=== PATIENT | female | born 1995 ===

== ENCOUNTER 2018-02-03 12:37 | Inpatient (IN) | payer BC ==
[2018-02-03 13:51] LABS: PLATELET COUNT 334 10^3/uL (150-400)
--- NOTE | 2018-02-03 13:57 | EDPHY ---
H & P Smoking Status: Never smoked Time Seen by Provider: 02/03/18 13:01 HPI/ROS: CHIEF COMPLAINT: Suicidal ideation HISTORY OF PRESENT ILLNESS: 22-year-old female presents to the emergency department on an M1 hold for suicidal ideation. The patient is a current student at [employer] and went to the counseling office stating that she has had suicidal ideation for last several days specially last evening. They placed her on an M1 hold and she was brought to the emergency department for evaluation. The patient has no specific plan of suicide. Patient states she was "obsessing about this last night and researching ways to on the Internet."She denies substance abuse. She denies auditory or visual hallucinations. The patient states that she saw psychiatrist a few years ago and was diagnosed with bipolar. She states that she was never started on medication. Apparently her "sessions ran out" and therefore she never had further follow-up or medications started. Currently she has no physical complaints. Denies pain in her chest or difficulty breathing. Denies abdominal pain. No URI symptoms. REVIEW OF SYSTEMS: Constitutional: No fever, no chills. Eyes: No double or blurry vision. ENT: No sore throat. Respiratory: No cough, no shortness of breath. Cardiac: No chest pain. Gastrointestinal: No abdominal pain, vomiting or diarrhea. Genitourinary: No dysuria. Musculoskeletal: No neck or back pain. Skin: No rashes. Neurological: No headache. (Verito Celayaa Josh) Past Medical/Surgical History: Depression, bipolar (Lesley Celayaestuardo Moreno) Social History: [employer] student from [place] (Verito Celayaa Josh) Physical Exam: General Appearance: Alert, no distress. Eyes: Pupils equal and round. Extraocular motions are all intact. ENT: Mouth: Mucous membranes moist. Respiratory: No wheezing, rhonchi, or rales, lungs are clear to auscultation. Cardiovascular: Regular rate and rhythm. Gastrointestinal: Abdomen is soft and nontender, no masses, no rebound or guarding, bowel sounds normal. Neurological: Alert and oriented x 3, cranial nerves II through XII grossly intact Skin: Warm and dry, no rashes. Musculoskeletal: Nontender to palpate along the cervical, thoracic or lumbar spine. Neck is supple. Extremities: Full range of motion and no peripheral edema. Psychiatric: Patient is oriented X 3, there is no agitation. (Aida Celaya) Constitutional: Initial Vital Signs Temperature (C) 36.2 C 02/03/18 12:40 Heart Rate 110 H 02/03/18 12:40 Respiratory Rate 16 02/03/18 12:40 Blood Pressure 138/104 H 02/03/18 12:40 O2 Sat (%) 96 02/03/18 12:40 O2 Delivery Mode Room Air Allergies/Adverse Reactions: azithromycin [From Zithromax] Allergy (Verified 02/04/18 12:16) Home Medications: Medication Instructions Recorded [place] Carbonate ER [Eskalith Cr 450 mg PO BID #60 tab 02/06/18 450 mg (*)] Melatonin [Melatonin 3 MG (*)] 3 mg PO HS PRN tab 02/06/18 [place]-3 Fatty Acids [Fish Oil 1000 1,000 mg PO DAILY cap 02/06/18 mg (*)] hydrOXYzine HCL [hydrOXYzine HCL 25 mg PO HS #30 tab 02/06/18 (RX)] metFORMIN HCL [Glucophage 500 mg 500 mg PO DAILY #30 tab 02/06/18 (*)] Medical Decision Making ED Course/Re-evaluation: 22-year-old female presents to the emergency department feeling depressed and suicidal. Patient is on an M1 hold. She is awaiting mental health evaluation. (Aida Celaya) Differential Diagnosis: Depression including functional and major depression, situational depression, medication side effect, drugs and alcohol abuse. (Aida Celaya) Other Provider: The patient was evaluated and managed by the Physician Sand Mixer [employer]. I discussed the patient's presentation and course with the midlevel provider with them and agree with the evaluation. My co-signature indicates that I have reviewed this chart and I agree with the findings and plan of care as documented. I am the secondary supervising physician. I assumed care of this patient from YAN Nielson at 5:15 p.m.. Patient was evaluated by [facility]. She will be admitted to [address] [place] [address]. Transfer paperwork was signed by myself. The patient was in stable condition and required no further interventions. (Josie Streeter) Care Turn Over: Care was turned over to Dr. Streeter at 5:15pm for disposition and plan. (Aida Celaya) - Data Points Laboratory Results: Laboratory Results 02/03/18 13:10 02/03/18 13:10 Medications Given: Discontinued Medications Acetaminophen (Tylenol) 650 mg PO Q4HRS PRN PRN Reason: Pain, Mild Stop: 08/02/18 21:06 Last Admin: 02/03/18 21:25 Dose: 650 mg Hydroxyzine HCl (Hydroxyzine Hcl) 25 mg PO Q6HRS PRN PRN Reason: Anxiety Stop: 08/03/18 12:05 Last Admin: 02/04/18 20:49 Dose: 25 mg Hydroxyzine HCl (Hydroxyzine Hcl) 25 mg PO HS SVETA Stop: 08/04/18 20:59 Last Admin: 02/05/18 20:59 Dose: 25 mg [place] Carbonate (Eskalith Cr) 450 mg PO BID [facility] Stop: 08/03/18 12:14 Last Admin: 02/06/18 09:13 Dose: 450 mg Metformin HCl (Glucophage) 500 mg PO DAILY SVETA Stop: 08/05/18 08:59 Last Admin: 02/06/18 09:13 Dose: 500 mg Departure - Departure Disposition: [facility] IP Clinical Impression: Suicidal ideation Depression Qualifiers: Depression Type: unspecified Qualified Code(s): F32.9 - Major depressive disorder, single episode, unspecified Condition: Good
[2018-02-03] MEDS ORDERED: ACETAMINOPHEN 325 MG TAB PO PRN (21:07)
[2018-02-03] MEDS ORDERED: MAGNESIUM HYDROXIDE 30 ML UDCUP PO PRN (21:07)
[2018-02-03] MEDS ORDERED: LORazepam 0.5 MG TAB PO PRN (21:07)
[2018-02-03] MEDS ORDERED: MAG HYDROX/AL HYDROX/SIMETH 30 ML UDCUP PO PRN (21:07)
[2018-02-04] MEDS ORDERED: MELATONIN 3 MG TAB PO PRN (12:06)
[2018-02-04] MEDS ORDERED: hydrOXYzine HCL 25 MG TAB PO PRN (12:06)
--- NOTE | 2018-02-04 12:53 | BAPA ---
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 Her parents live in [place]. CHIEF COMPLAINT: "Just a lot of ups and downs." HISTORY OF PRESENT ILLNESS: The patient reports that she had been having anxiety, depressed mood, and had been having recurrent thoughts of overdosing on pills. [facility] did an intake evaluation, and then was sent to the emergency room on an M1 hold due to concern she was a danger to herself. She was admitted to the [address] [place] [address] behavioral health unit from the [facility] Emergency Department. The patient reports that for 1 week, she had been feeling depressed, sad, down, and hopeless. She reports racing thoughts, severe insomnia, only sleeping a few hours at night, generalized anxiety about her school work and her future, also feeling distracted, having poor concentration. She reports prior to the past week she had had an episode lasting several weeks of elevated mood, elevated energy, elevated activity, decreased need for sleep, racing thoughts, only sleeping 1 or 2 hours at night, with some impulsive spending. The patient reports symptoms of depression and anxiety for about 4 years. She reports stress due to starting a new school about 2 months ago after transferring from the [employer]. She reports not drinking alcohol or using any street drugs, other than using cannabis once a week with her friends on the weekends. She denies any recent violent thoughts or violent behaviors. She denies any recent self-harm. She reports daily thoughts of overdosing on pills for the past week. She denies any recent change in her physical health. She denies paranoia or auditory hallucinations. PAST PSYCHIATRIC HISTORY: The patient reports no prior suicide attempts. No history of violence toward others or arrests. No history of drug or alcohol abuse. She reports no psychiatric hospitalizations in the past. She reports taking Concerta for attention deficit hyperactivity disorder in 11th grade, without any clear benefit. She reports getting counseling at the [employer] [facility] last year and the year before for depression and anxiety. She reports a brief trial of Prozac without clear benefit. She also took Wellbutrin in the past, and had nausea. She has not been recently taking any psychiatric medications or getting any outpatient mental health treatment. ALLERGIES: The patient is allergic to azithromycin. MEDICATIONS: None current. PAST MEDICAL HISTORY: She denies traumatic brain injuries or seizures. She has a history of surgery on her right knee. She was treated for bronchitis with antibiotics and prednisone a month ago, but has not been recently taking either of those medications. She has a history of migraine headaches. She has no plans for . SOCIAL HISTORY: The patient was adopted. She was raised by her adoptive parents in [place], along with a brother and a sister. She reports that her parents live in [place]. She lives with a roommate. 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 She is single, never , no children, never been in the . FAMILY HISTORY: Unknown, as the patient is adopted. LABS: In the emergency department, she had a white blood cell count 8.3, hemoglobin 17.7, platelet count 334. Sodium 142, potassium 4.3, creatinine 0.3 , glucose 171, calcium 11.3. TSH 2.2. Serum beta HCG was negative. Urine tox screen was positive for cannabis. Negative for other drugs of abuse. Serum negative for alcohol. EXAM: VITAL SIGNS: She is 162 cm, 65.7 kg with a BMI of 24.9, blood pressure 123/65, heart rate 100, pulse ox 91% on room air, temperature afebrile, respiratory rate 16. GENERAL: She is an alert, female who is overweight , who is ambulatory, cooperative and pleasant. She has good eye contact. Her speech is regular rate and rhythm, but rapid at times. Her affect actually appears euthymic and pleasant and reactive. She describes her mood as depressed. Her thoughts are organized, tangential at times. She denies thoughts to hurt herself or others this morning, but reports daily suicidal thoughts to overdose in the past week. She denies auditory hallucinations or paranoia. Her memory is fair. Her insight is fair. Her judgment is questionable. ASSESSMENT: Bipolar disorder type 2, most recent episode depressed with mixed features, possible diabetes, possible cannabis use disorder. Overweight. History of migraine headaches. The overall assessment is the patient reports a history of hypomania, alternating with depressive episodes and recent recurrent suicidal thoughts. She denies any history of suicide attempts, but reports furtherance toward self- harm about 2 years ago when she went to a [employer] track with suicidal thoughts. She does not currently appear agitated or impulsive, and appears to have some insight into her condition. She reports no benefit from 2 prior antidepressant trials. PLAN OF TREATMENT: 1. The patient is on M[facility] hold from the [facility] [employer] [email or web address]. This is dated February 03 at 11:45. 2. The patient is on suicide precautions on the unit, with 15 minute checks. 3. The patient was provided education about bipolar disorder. She was given options of different mood stabilizer medications including lithium, Abilify, Seroquel, and Symbyax. The patient prefers to try lithium. We will start 450 mg of lithium extended release twice a day. 4. Will add on a TSH, lipid panel, hemoglobin A1c, and liver function test to the patient's labs. 5. We will check glucometers prior to breakfast and dinner to reassess for diabetes, as she had an elevated blood glucose in the emergency department. 6. The patient was given a handout on lithium from the [employer]. Discussed the risk of drug interactions with nonsteroidal anti- inflammatory pain medicines, as well as with diuretic blood pressure medicines. She was given information about the signs and symptoms of lithium toxicity. She was given information about the risks of psychiatric medications causing defects or miscarriage. 7. Ordered melatonin 3 mg p.o. at bedtime p.r.n. for insomnia. Ordered Tylenol 650 mg p.o. q.4 hours p.r.n. for migraine headache, hydroxyzine 25 mg p.o. q.6 hours p.r.n. for anxiety. 8. We will attempt to get collateral information from the patient's family. 9. Patient denies any recent alcohol or nicotine use disorders. /[id number]/MODL MTDD
[2018-02-04] MEDS: LITHIUM CARBONATE ER 450 MG TAB PO SCH ×2 (13:05→20:49)
[2018-02-05 07:01] VITALS: RESP 14; O2SAT 94
[2018-02-05] MEDS: LITHIUM CARBONATE ER 450 MG TAB PO SCH ×2 (09:10→18:05)
--- NOTE | 2018-02-05 09:52 | GCON ---
[f rep st] CONSULTATION INTERNAL MEDICINE CONSULTATION DATE OF CONSULTATION: 02/04/2018 REFERRING PHYSICIAN: LONA GARCIA MD REASON FOR CONSULTATION: Medical evaluation for psychiatric inpatient. HISTORY OF PRESENT ILLNESS: This is a 22-year-old admitted with suicidal ideation. She has been having anxiety, depressed mood, and recurrent thoughts on overdosing on pills. She went to [facility], did an intake, and was sent to the ER on an M1 hold. She is being admitted here. Please refer to the psychiatric H and P for full details. Medically, she is doing well. She denies any recent weight changes, fevers, chills, illnesses. She did have a bronchitis a month ago, has been on antibiotics and prednisone, but has since finished that and her cough has resolved. No palpitations. No chest pain. No abdominal complaints. No urinary symptoms. No musculoskeletal issues and no neurologic issues or edema. REVIEW OF SYSTEMS: A 10-point review of systems was done and is negative except as stated in HPI. GENERAL: No changes in weight. No fevers, chills. EYES: No change in vision. ENT: No hearing changes. CARDIOVASCULAR: No chest pain, palpitations. LUNGS: No shortness of breath. ABDOMEN: No abdominal pain. : No urinary symptoms. MUSCULOSKELETAL: No joint pain. NEUROLOGIC: No numbness or weakness. PSYCHIATRIC: See HPI. Increased depressed mood. SKIN: No rash. ALLERGIES: Erythromycin, azithromycin. MEDICATIONS: No medications on admission. PAST MEDICAL HISTORY: Migraines and hyperlipidemia. SOCIAL HISTORY: The patient was adopted, lives in [place]. She is currently studying psychology. She is single. FAMILY HISTORY: Unknown as the patient is adopted. PHYSICAL EXAM: VITAL SIGNS: She has been afebrile. Heart rate 100, blood pressure 123/65, respirations 16, she is 91% on room air. GENERAL: She is a mildly heavy 22-year-old in no distress. She is alert and oriented. Her speech is clear and fluent. HEENT: Pupils equal. Extraocular movements intact. Mucous membranes moist. Oropharynx clear. NECK: Supple. HEART: Regular rate and rhythm. No murmur, gallop, or rub. LUNGS: Clear to auscultation. No wheeze, rhonchi, or rales. ABDOMEN: Soft, no masses. EXTREMITIES: No clubbing, cyanosis or edema. MUSCULOSKELETAL: No joint effusions or deformities. SKIN: Intact. No rash. NEUROLOGIC: Speech is fluent. She moves all 4 extremities. Mood appropriate. LABORATORY DATA: CBC is within normal limits, mildly elevated hemoglobin. Electrolytes show BUN of 6, , glucose is elevated at 171, with a calcium of 11.3. LFTs are all elevated and her lipids are elevated as well. TSH is normal. Urine tox screen is positive for marijuana. ASSESSMENT: A 22-year-old admitted with depression, anxiety. Please refer to psychiatric assessment for full details. Medically, she likely has metabolic syndrome. She has an elevated glucose, lipid panel. She also has an elevated calcium, which may be due to dehydration. 1. Depression, anxiety. Please refer to psychiatric assessment. 2. Dyslipidemia. It appears to be familial. Given the degree of her elevated lipids, she needs follow up as an outpatient for this. 3. Elevated glucose. She likely has metabolic syndrome, possibly type 2 diabetes versus prediabetes. We will check a hemoglobin A1c and she will need close followup. 4. Elevated calcium level, relatively asymptomatic. We will repeat this tomorrow. If it is elevated, she will likely need further evaluation as an outpatient. 5. Elevated liver function tests, possibly fatty liver versus alcohol use, although the patient denies any recent alcohol use. PLAN: 1. We will check her LFTs in the a.m. along with hepatitis panel. She will eventually need further followup with an ultrasound and GI followup should her LFTs remain elevated. Again, all this may be in the setting of familial dyslipidemia. 2. Right now, the patient is completely asymptomatic regarding multiple lab abnormalities. Most of this is compatible with metabolic syndrome. Given her age, comorbidities and abnormalities, I recommend she establish care with a primary care physician and have Endocrinology follow up eventually as an outpatient. While she is in the hospital, I would recommend following up on some of her blood work including repeating her LFTs, checking hepatitis panel and PTH levels. I also recommend a diabetic diet while she is here in the hospital. Thank you for this consultation. We will follow up on her blood work tomorrow. /[id number]/MODL MTDD
[2018-02-05] MEDS ORDERED: SODIUM CL NASAL 45 ML BTL EACHNARE PRN (10:42)
--- NOTE | 2018-02-05 11:24 | SOAPPROG ---
SOAP Progress Note Assessment/Plan: Assessment: Bipolar Disorder type 2, most recent depressed with mixed features Insomnia Elevated LFTs of unknown cause, possible fatty liver disease Type II diabetes, Hyperlipidemia Borderline elevated Calcium Overweight Patient appears appropriate and reports reduced mood symptoms, denies SI this AM with appropriate judgment. Plan: Continue [place] ER 450mg BID. Check level AM. Discussed with patient this level will not be an accurate steady-state. Discussed [place] can increase calcium level Schedule Hydroxyzine 25mg QHS for insomnia and allergic rhinitis Viral Hepatitis panel pending Discussed low carbohydrate diet, increasing excercise Dietary consult Glucometers for 24hours Discussed PCP follow up to recheck glucose, lipids, LFTs, calcium Discussed psychiatry follow up to check [place] level after discharge Discussed dangers of OTC Afrin/phenylephrine 02/05/18 11:28 Subjective: CC: "So much better" Patient reports tolerating lithium without side effects. Took Hydroxyzine last night for sleep and nasal congestion. Reports remission of racing thoughts and reduced intensity of mood swings and less intense sadness. Denies thoughts of or suicide this AM. Reports wanting to live for friends and family and wanting to complete school. Reports if having thoughts of self harm will listen to music, go for a walk, talk to friends, read, or call family. Denies feeling tired or weak. Reports hospitalist discussed with her need for PCP follow up for hyperglycemia and elevated LFTs. Reports she wants to be discharge tomorrow with mother if possible. Reports she was using Afrin/ phenylephrine nasal spray nightly prior to admission for nasal congestion. Objective: Vital Signs Temp Pulse Resp BP Pulse Ox 36.6 C 100 14 118/69 94 02/05/18 06:00 02/05/18 06:00 02/05/18 06:00 02/05/18 06:00 02/05/18 06:00 Laboratory Results 02/05/18 06:30 ALert Female. Speech RRR. Mood 'so much better.' Affect euthymic. Thoughts organized. Denies SI or HI or AH or paranoia. Fair insight. Appropriate judgment. Staff report patient slept 6 hours last night with 25mg Hydroxyzine; compliant with [place], able to attend groups, calm on unit. - Time Spent With Patient Time Spent With Patient: 30 minutes - Pending Discharge Pending Discharge Within 24 Hours: Yes Pending Discharge Date: 02/06/18 Pending Discharge Time: 11:00 ICD10 Worksheet Patient Problems: Problems Problem Status Onset Bipolar disorder, unspecified Acute Depression Acute Migraine Acute Suicidal ideation Acute
[2018-02-05 17:23] LABS: HEPATITIS B SURFACE ANTIGEN NEGATIVE (NEGATIVE)
[2018-02-05 17:28] LABS: HEPATITIS A ANTIBODY IGM (BCH) NEGATIVE (NEGATIVE); HEPATITIS B CORE AB IGM NEGATIVE (NEGATIVE)
[2018-02-05 17:40] LABS: HEPATITIS C ANTIBODY TOTAL NEGATIVE (NEGATIVE)
[2018-02-05] MEDS ORDERED: hydrOXYzine HCL 25 MG TAB PO SCH (21:00)
[2018-02-06 06:59] VITALS: BP 121/72; PULSE 84; TEMP 97.4
--- NOTE | 2018-02-06 07:19 | HOSPPROG ---
Hospitalist Progress Note Assessment/Plan: Impression: 1. DM, suspect type 2 2. suspected hepatic steatosis 3. HLD Recs: 1. Metformin 500mg PO daily; follow up with PCP to recheck labs within 1 month; I discussed the side effects with her 2. Check c-peptide prior to discharge - this will need to be followed up by her PCP 3. She prefers not to start a statin currently and work on diet and exercise - she needs lipids rechecked in 3-6 months 4. Follow up with PCP to recheck LFTs - suspect these will improve if her glucose control improves 5. Referral given to Dr Chavez for PCP 6. Ok for discharge from IM perspective - she just needs outpatient follow-up Subjective: no complaints; we discussed her medical problems in depth, she understands that she needs to improve her diet and increase her exercise Objective: Vital Signs Temp Pulse Resp BP Pulse Ox 36.3 C 84 14 121/72 H 94 02/06/18 06:00 02/06/18 06:00 02/05/18 06:00 02/06/18 06:00 02/05/18 06:00 Laboratory Results 02/05/18 06:30 - Physical Exam Constitutional: no apparent distress, appears nourished Cardiovascular: regular rate and rhythym, no murmur, rub, or gallop Respiratory: no respiratory distress, no rales or rhonchi Gastrointestinal: soft, non-tender abdomen, no palpable masses ICD10 Worksheet Patient Problems: Problems Problem Status Onset Depression Acute Migraine Acute Suicidal ideation Acute Bipolar disorder, unspecified Acute
[2018-02-06] MEDS ORDERED: metFORMIN HCL 500 MG TAB PO SCH (09:00)
[2018-02-06] MEDS: LITHIUM CARBONATE ER 450 MG TAB PO SCH (09:13)
--- NOTE | 2018-02-06 09:29 | SOAPPROG ---
SOAP Progress Note Assessment/Plan: Assessment: Bipolar Disorder type 2, most recent depressed with mixed features Insomnia - improved Elevated LFTs of unknown cause, possible fatty liver disease Type II diabetes, Hyperlipidemia Borderline elevated Calcium Overweight Patient appears appropriate and reports reduced mood symptoms, denies SI this AM with appropriate judgment. Patient has multiple supports and completed safety plan. Plan: Continue [place] ER 450mg BID. Level pending this AM. Discussed with patient this level will not be an accurate steady-state. Discussed [place] can increase calcium level Continue Hydroxyzine 25mg QHS for insomnia and allergic rhinitis Discussed low carbohydrate diet, increasing excercise Dietary consult Discussed PCP follow up to recheck glucose, lipids, LFTs, calcium Metformin started for diabetes C-peptide ordered by hospitalist Start Fish Oil for Hyperlipemia Patient agrees to voluntary treatment Plan discharge after family meeting with mother this afternoon Refer to [facility] psychiatry clinic Patient needs PCP follow up and possible endocrinology referral 02/06/18 09:30 02/06/18 09:34 Subjective: CC: "Much better" Patient reports sleeping well. Reports stable mood yesterday without severe mood swings or severe dysphoria. Reports feeling hopeful about the future and wants discharge to spend day with mother before she returns to [place]. Reports goal is to go well in school and get into Law School. Reports she will exercise, listen to music, read or draw if having severe anxiety or mood swings. Reports she will talk to friends, roommate, or call parents if having suicidal thoughts after discharge. Denies thoughts of or suicide this AM or yesterday. Denies racing thoughts or irritability. Objective: Vital Signs Temp Pulse Resp BP Pulse Ox 36.3 C 84 14 121/72 H 94 02/06/18 06:00 02/06/18 06:00 02/05/18 06:00 02/06/18 06:00 02/05/18 06:00 Laboratory Results 02/05/18 06:30 Alert female. Calm, pleasant, cooperative. Speech RRR. Mood 'much better' Affect euthymic. Thoughts organized. Denies SI or HI or AH. Reports multiple coping skills to use if having SI and multiple supports to contact if distressed. Fair insight, appropriate judgment. Patient seen by hospitalist this AM and started on Metformin for diabetes type 2. [place] level pending. C-peptide ordered. - Time Spent With Patient Time Spent With Patient: 20 minutes - Pending Discharge Pending Discharge Within 24 Hours: Yes Pending Discharge Date: 02/06/18 Pending Discharge Time: 13:00 ICD10 Worksheet Patient Problems: Problems Problem Status Onset Bipolar disorder, unspecified Acute Depression Acute Migraine Acute Suicidal ideation Acute
--- NOTE | 2018-02-06 13:28 | BDS ---
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 She is adopted , and her parents live in [place]. REASON FOR ADMISSION: Please see psychiatric assessment and history from February 04, 2018. The patient apparently went to the [facility]. Reported anxiety, depression, mood swings, insomnia, and suicidal thoughts to overdose. She was placed on an M1 hold and then went to the [facility] Department and then admitted to [address] [place] [address]. HOSPITAL COURSE: The patient, after admission, reported a history of alternating depressive episodes with hypomania including episodes of going weeks with very little sleep, elevated energy, elevated activity, and racing thoughts. She reported in the week prior to admission, feeling depressed, hopeless, and having recurrent suicidal thoughts to overdose. She denied any furtherance toward self-harm prior to admission. The patient was agreeable to start lithium as a mood stabilizer. She was given information about the risks and benefits of lithium including the risk of hypothyroidism, renal disease, defects, miscarriage, and delirium. The patient was started on lithium extended release 450 mg by mouth twice a day. She reported insomnia prior to admission and was started on hydroxyzine 25 mg p.o. at bedtime. She has a history of seasonal allergies, and had been using Afrin nasal spray and this was discontinued. The patient had a history of headaches and was given p.r.n. Tylenol for headaches. The patient was overweight. On the unit, we found that she had metabolic syndrome with type 2 diabetes as well as elevated triglycerides, elevated LDL cholesterol. The patient was counseled about eating a low-fat diet and starting fish oil for hyperlipidemia. She was counseled about a diabetic diet because she had elevated glucose in the 100s as well as 200s. She had a hemoglobin A1c of 9.1 which is in the diabetic range. The patient was seen by the hospitalist and started on metformin for diabetes. She was counseled about eating a low-carbohydrate, low-sugar diet. The patient had a borderline high calcium level. The patient was warned that [place] could exacerbate hypercalcemia. The patient had elevated liver function tests. The patient and her mother reported that she had a history of a liver hemangioma. It is unclear if this is related to that or if the patient has fatty liver disease or other type of liver disease. The patient had a negative viral hepatitis panel. The patient was counseled to see an internal medicine physician after discharge for further evaluation of diabetes, hyperlipidemia, borderline hypercalcemia, and elevated liver function tests. The patient had a urine drug screen positive for cannabis. The patient reported using cannabis once or twice a week. She was counseled that this can cause anxiety and panic attacks and psychosis and memory problems. The patient signed release information for care to be coordinated with [facility]. She also allowed care coordination with her mother who drove her up to the unit to visit the patient from [place]. The patient, on the unit, tolerated lithium without side effects. She was given a handout describing the risks of lithium. She had improvements in mood stability, improvements in sleep. She reported reduction in anxiety, reduction in racing thoughts, and reported remission of her suicidal thinking. On the unit , she was calm, pleasant, cooperative and able to attend groups. She completed a safety plan outlining the symptoms that were concerning to her as well as her coping skills to use if having distressing thoughts or emotions as well as an extensive support system. Prior to discharge, she was hopeful regarding discharge. She was future-oriented , wanting to do well in school to go to law school. She reported multiple supports including her family and friends, and multiple coping skills to use if having thoughts of self harm. The patient was admitted on . On February 06, she agreed to voluntary treatment only for the day of February 06 and wanted to be discharged in the afternoon with her mother. She was unwilling to stay until February 07 to have a lithium level checked which would be closer to steady state. We attempted to get a blood draw this morning, February 06, to check the lithium level even though this would not be completely accurate. The home theater specialist was unable to get an adequate specimen. The patient did not have any signs or symptoms of lithium toxicity. The patient was counseled extensively about signs and symptoms of lithium toxicity to monitor for if discharging from the unit without a followup lithium level. The patient was able to get an intake appointment at [facility] within 1 week, and will be assigned a psychiatrist there who can order a followup lithium level. PROCEDURES: None. CONSULTS: The patient was seen by the hospitalist, Dr. Chavez, on February 04, 2018, and then by the hospitalist, Dr. Lares, on February 06, 2018. LABORATORY DATA: Labs pending: There was a C-peptide ordered by the hospitalist that may be pending. Lab results showed a white blood cell count 8.3, hemoglobin 17.7, platelet count 334. Sodium 139, potassium 4.6, creatinine 0.4, glucose 194. Calcium 10.7 which is borderline high. Phosphorus 4.9. Iron 115, total iron-binding capacity 344, total bilirubin 1.4. AST 92, ALT 166. Triglycerides 257, LDL 186, HDL 55, TSH 2.1. PTH which is parathyroid hormone of 56. Serum beta-HCG was negative. Urine tox screen in the emergency room was positive for cannabis only, negative for other drugs of abuse. Blood was negative for alcohol. Serum viral hepatitis panel was negative. CONDITION ON DISCHARGE: She is an alert, female in no acute distress. She is ambulatory, cooperative, pleasant. She is overweight. She has good eye contact. Her affect is euthymic and pleasant. Her mood is "good." Her thoughts are organized. She denies any thoughts to hurt herself or others. She denies paranoia or hallucinations. Her memory is good. Her insight is fair. Her judgment is appropriate. DISCHARGE DIAGNOSES: Bipolar disorder type 2, most recent episode depressed with mixed features. Cannabis Use Disorder, Mild Obesity, Hyperlipidemia Type 2 diabetes Insomnia, Borderline elevated calcium levels. Liver function elevations, possibly due to fatty liver disease or liver hemangioma. Allergic rhinitis History of migraine headaches. DISPOSITION: The patient is leaving the unit with her mother. FOLLOWUP: The patient is referred to [facility] for psychiatry appointments. The patient is referred to Dr. Chavez, an internal medicine physician, for medical followup. DISCHARGE INSTRUCTIONS: Include the following: Low-fat, low-sugar diet. Have psychiatrist at [facility] check lithium level. Discontinue lithium if having severe sedation, confusion, nausea, diarrhea, or tremors. Warning that psychiatric medications can cause defects or miscarriage. Have internal medicine physician monitor liver function abnormalities, diabetes, hyperlipidemia, and borderline hypercalcemia. DISCHARGE MEDICATIONS: Include the following: Hydroxyzine 25 mg p.o. at bedtime for insomnia and allergic rhinitis, lithium carbonate extended release 450 mg by mouth twice a day, melatonin 3 mg p.o. at bedtime p.r.n. for insomnia , metformin 500 mg p.o. daily for diabetes. [place]-3 fatty acids, fish oil a 1000 mg by mouth daily over the counter for hyperlipidemia. LEGAL STATUS: The patient was admitted on an M1 hold and then agreed to voluntary treatment on the morning of February 06 only for treatment and care coordination on that day and declined to stay on the inpatient unit through February 07 to have a repeat blood test to check the lithium level. ADDENDUM: ALLERGIES: The patient has an allergy to azithromycin. PSYCHIATRIC HISTORY: The patient apparently has no history of suicide attempts, violence, or arrests. Apparently, she had gotten outpatient treatment in [place] for depression and anxiety. She reported nausea from Wellbutrin and no benefit from fluoxetine in the past. She was not taking psychiatric medications or receiving mental health treatment in the months prior to admission to the hospital. /[id number]/MODL MTDD
[2018-02-07] MEDS ORDERED: OMEGA-3 FATTY ACIDS 1,000 MG CAP PO SCH (09:00)
== END 2018-02-06 13:05 | disposition home or self-care (01) | DRG 885 ==
LOC: BBEH 19:50
PROVIDERS: ADMIT Psychiatry & Neurology Psychiatry; ATTEND Psychiatry & Neurology Psychiatry
DX: F31.81 Bipolar II disorder (principal); E66.9 Obesity, unspecified; F12.90 Cannabis use, unspecified, uncomplicated; E78.5 Hyperlipidemia, unspecified; E11.9 Type 2 diabetes mellitus without complications; G43.909 Migraine, unspecified, not intractable, without status migrainosus; G47.00 Insomnia, unspecified; Z79.84 Long term (current) use of oral hypoglycemic drugs
CPT/HCPCS: 80305; 84681-90; G0472; G0480